=== PATIENT | female | born 1975 | race Caucasian/White ===

== ENCOUNTER → 2019-04-08 | Outpatient (CLI) | payer OTHER | END | disposition home or self-care (01) | LOC: CFH 12:42 | PROVIDERS: ATTEND Internal Medicine Cardiovascular Disease | DX: I37.1 Nonrheumatic pulmonary valve insufficiency (principal); R53.83 Other fatigue; R42 Dizziness and giddiness; Z87.891 Personal history of nicotine dependence | CPT/HCPCS: 0399T; 93306 ==

== ENCOUNTER → 2019-06-02 | Outpatient (CLI) | payer OTHER | END | disposition home or self-care (01) | LOC: CFH 08:17 | PROVIDERS: ATTEND Internal Medicine Cardiovascular Disease | DX: R07.9 Chest pain, unspecified (principal); R00.1 Bradycardia, unspecified | CPT/HCPCS: 78452; 93017; A9502 ==

== ENCOUNTER 2019-06-23 07:27 | Observation (INO) | payer OTHER ==
[~2019-06-23] VITALS: Ht 172.7 cm; Wt 109.2 kg
[2019-06-23] MEDS: SODIUM CHLORIDE 0.9% 1,000 ML IV SCH ×3 (07:55→23:25)
[2019-06-23] MEDS ORDERED: SODIUM CHLORIDE 0.9% 1,000 ML IV SCH (07:58)
[2019-06-23 08:05] VITALS: BP 120/66
[2019-06-23] MEDS ORDERED: ASPI-650 PO (08:14)
[2019-06-23] MEDS ORDERED: FLUT9.9S INH (08:14)
[2019-06-23 09:13] LABS: BASOPHILS # (AUTO) 0.04 x10^3/uL (0-0.1); BASOPHILS % (AUTO) 1 % (0-1); EOSINOPHILS # (AUTO) 0.56 x10^3/uL (0-0.4); EOSINOPHILS % (AUTO) 9 % (1-7); LYMPHOCYTES # (AUTO) 1.56 x10^3/uL (1-3.4); LYMPHOCYTES % (AUTO) 24 % (22-44); MD NO; MEAN CORPUSCULAR HEMOGLOBIN 31.7 pg (27.0-34.8); MEAN CORPUSCULAR HGB CONC 32.9 g/dL (32.4-35.8); MEAN CORPUSCULAR VOLUME 96.4 fL (80-100); MEAN PLATELET VOLUME 8.4 fL (7.4-10.4); MONOCYTES # (AUTO) 0.52 x10^3/uL (0.2-0.8); MONOCYTES % (AUTO) 8 % (2-9); NEUTROPHILS % (AUTO) 59 % (42-75); PLATELET COUNT 337 x10^3/uL (130-400); RED BLOOD COUNT 4.43 x10^6/uL (3.82-5.3); RED CELL DISTRIBUTION WIDTH 13.2 % (9.6-15.2)
[2019-06-23 09:17] LABS: ANION GAP 6 mmol/L (5-15); CALCIUM 8.2 mg/dL (8.5-10.1); CHLORIDE 112 mmol/L (98-107); CREATININE 0.98 mg/dL (0.55-1.02)
[2019-06-23] MEDS ORDERED: ISOPROTERENOL 0.2MG/ML, 5ML ONE (09:32)
[2019-06-23] MEDS ORDERED: LIDOCAINE 1%, 20ML ONE ×2 (09:54→11:29)
[2019-06-23] MEDS ORDERED: MIDAZOLAM 1 MG/ML, 5ML ONE (10:05)
[2019-06-23] MEDS ORDERED: FENTANYL PF 100 MCG/2ML ONE (10:05)
[2019-06-23] MEDS ORDERED: LIDOCAINE 2%, 20ML ONE (11:08)
[2019-06-23] MEDS ORDERED: CEFAZOLIN PMX 1GM/50ML 50 ML ONE (11:08)
[2019-06-23] MEDS ORDERED: CEFAZOLIN 1,000 MG ONE (11:08)
[2019-06-23] MEDS ORDERED: MIDAZOLAM 1 MG/ML, 2ML ONE ×2 (11:29→11:39)
[2019-06-23] MEDS ORDERED: FLUTICASONE NASAL SPRAY 16GM NAS PRN (12:00)
[2019-06-23] MEDS ORDERED: HOLD MEDICATION MC PRN (12:00)
[2019-06-23] MEDS ORDERED: ASPIRIN 325 MG TABLET EC PO PRN (12:00)
[2019-06-23] MEDS: ACETAMINOPHEN 325 MG TABLET PO PRN (12:54)
[2019-06-23] MEDS ORDERED: DIPHENHYDRAMINE 50 MG CAPSULE PO PRN (13:30)
[2019-06-23] MEDS ORDERED: VANCOMYCIN PMX 1GM/200ML 200 ML IVPB ONE (13:30)
[2019-06-23 14:08] VITALS: BP 107/68
[2019-06-23] MEDS: HYDROcodone/APAP 5/325 TABLET PO PRN ×3 (14:10→23:28)
[2019-06-23 18:59] VITALS: BP 120/79
[2019-06-23] MEDS: SODIUM CHLORIDE FLUSH 10ML SYR IVF SCH (21:45)
[2019-06-24 03:07] VITALS: BP 108/72
[2019-06-24] MEDS: HYDROcodone/APAP 5/325 TABLET PO PRN ×2 (03:43→10:42)
[2019-06-24 07:02] VITALS: BP 109/73
[2019-06-24] MEDS: ACETAMINOPHEN 325 MG TABLET PO PRN (07:38)
[2019-06-24] MEDS: SODIUM CHLORIDE 0.9% 1,000 ML IV SCH (07:55)
[2019-06-24] MEDS ORDERED: ACET325T26 PO (08:57)
[2019-06-24] MEDS ORDERED: HYDR-3237 PO (08:57)
[2019-06-24] MEDS: SODIUM CHLORIDE FLUSH 10ML SYR IVF SCH (09:13)
== END 2019-06-24 10:55 | disposition home or self-care (01) ==
LOC: CACL 07:27 → ORIP 11:58 → 5SO 12:24 → DCLOUNGE 06-24 10:48
PROVIDERS: ADMIT Internal Medicine Cardiovascular Disease; ATTEND Internal Medicine Cardiovascular Disease
DX: R00.1 Bradycardia, unspecified (principal); R07.9 Chest pain, unspecified; Z88.0 Allergy status to penicillin; I47.2 Ventricular tachycardia; R55 Syncope and collapse
CPT/HCPCS: 33208; 36415; 71045; 71046; 80048; 84703; 85025; 93623; 93654; 96365; 99156; 99157; C1779; C1785; C1892; C1894; C2630; G0378; J0690; J2250; J3010; J3370; J3490